=== PATIENT | female | born 1995 | race Two or more races ===

== ENCOUNTER → 2024-02-10 07:58 | Outpatient (REF) | payer BC, SELFPAY | LOC: MRI 07:58 | PROVIDERS: ATTENDING PHYSICIAN Nurse Practitioner Family; FAMILY PHYSICIAN Physician Assistant | DX: R51.9 Headache, unspecified (principal) | CPT/HCPCS: 70553; A9575 ==

== ENCOUNTER 2024-11-19 15:27 | Emergency (ER) | payer OTHER, SELFPAY ==
[2024-11-19 15:35] VITALS: BP 126/83
--- NOTE | 2024-11-19 19:52 | ED.SKININJ ---
HPI-Injury
General
Chief Complaint: Rabies
Source: patient
Time Seen by Provider: 11/19/24 19:32
History of Present Illness-Injury
Is this injury a work related problem?: Yes
Is pt an associate of [facility]/[place]?: No
Initial Injury comments:
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 Cat reportedly has some type of neurologic disorder, patient states that she has
not had her rabies vaccine updated in around 4 years and is requesting this presently. No other injuries were sustained. Patient's tetanus is up-to-date.
Past History
Past History
ED Past Medical History: Other
ED Past Surgical History: None
Social History
Tobacco: Non-smoker
Alcohol: None
Drug: None
Living: with family
Employment: Employed
Review of Systems
Review of Systems
All Other Systems: ROS reviewed and negative except as documented in HPI and ROS
Phy Exam
Physical Exam
Physical Exam:
GENERAL: Alert , in no apparent distress
EYE: conjunctiva clear
Head: Normocephalic atraumatic
NECK: Supple,
ENT: mmm.
LUNGS: no acute respiratory distress
NEUROLOGICAL: Alert and oriented
SKIN: Warm and dry, small bite puncture wound to the palmar surface of the left index finger distal phalanx, no active bleeding
MUSCULOSKELETAL: well perfused.
PSYCH: Normal and appropriate interaction.
Scores
Heart Failure Risk
Heart Failure Risk Score: Not Applicable
Heart Score for Chest Pain Patients
STEMI patient?: Not applicable
Withdrawal Assessment of Alcohol
Withdrawal Assessment Completed?: Not applicable
Course
Orders/Labs/Results
Orders:
Orders
11/19/24 19:52
Amoxicillin 875 mg/Clav 125 mg [Augmentin 875 mg/125 mg] 1 tablet PO NOW STA
11/19/24 20:00
Rabies Vaccine (Pcec)/Pf [Rabavert Rabies Vacc W-Diluent] 2.5 unit IM .ONCE ONE
Vital Signs
Initial and Last Documented VS:
Initial Vital Signs
Temp Pulse Resp BP Pulse Ox
98 F 98 16 126/83 99
11/19/24 15:35 11/19/24 15:35 11/19/24 15:35 11/19/24 15:35 11/19/24 15:35
Last Documented Vital Signs
Temp Pulse Resp BP Pulse Ox
98 F 81 16 121/81 99
11/19/24 15:35 11/19/24 20:00 11/19/24 20:00 11/19/24 20:00 11/19/24 20:00
MDM/Problems Addressed
Differential Diagnosis Includes:
Cat bite, no current symptoms to suggest tenosynovitis or cellulitis
MDM/Problems Addressed:
29-year-old female presenting to the ER for evaluation following a cat bite to the left index finger. Wound was irrigated with copious normal saline. Will start Augmentin for infection prevention. Will update first dose of rabies series here,
patient given a prescription for [facility] for the second rabies vaccine. Otherwise stable for discharge home
*Pulse Oximetry
Patient hypoxic: no
*Critical Care Note
Total Time (30-74mins, 75-104mins- exclusive of procedures): Not Applicable
ED Attending Note
-
Portions of this chart may have been created with voice recognition software.� Occasional wrong word or��sound alike� substitutions may have occurred due to the inherent limitations of voice recognition software.
Discharge Plan
Departure
Patient Disposition: Home (Routine Discharge)
Date of Disposition: 11/19/24
Time of Disposition: 19:52
Patient with high blood pressure during this ER visit?: No
Discharge Problem:
Cat bite, Puncture wound of left index finger
Instructions: Animal Bites (DC), Rabies Vaccine
Prescriptions:
New
amoxicillin-pot clavulanate 875-125 mg tablet
1 tab PO BID Qty: 9 0RF
Stand Alone Forms: Rabies Vaccine Post Exp Dosing
Activity Restrictions/Additional Instructions:
Please contact [facility] for 2nd rabies vaccine. You only need 2 boosters. You do not need 3rd and 4th.
Interventions
Interventions:
*Risk Screen - Suicide Last Done: 11/19/24 15:37
*General Assessment Last Done: 11/19/24 19:54
*Neglect/Abuse Screening Last Done: 11/19/24 15:37
*ED- Fall Risk Assessment Last Done: 11/19/24 19:54
*Nursing Disposition Last Done: 11/19/24 20:29
ED-Skin Assessment Last Done: 11/19/24 19:54
Discharge Date and Time
Discharge Date/Time: 11/19/24 20:31
Print Language: ARABIC
[2024-11-19 20:00] VITALS: BP 121/81
[2024-11-19] MEDS: RABAVERT RABIES VACC W-DILUENT 2.5 UNIT IM (20:14)
[2024-11-19] MEDS: AUGMENTIN 875 MG/125 MG 1 TABLET PO (20:14)
== END 2024-11-19 20:31 | disposition home or self-care (01) ==
LOC: EMR 15:27
PROVIDERS: EMERGENCY PHYSICIAN Emergency Medicine; FAMILY PHYSICIAN Physician Assistant
DX: S61.231A Puncture wound without foreign body of left index finger without damage to nail, initial encounter (principal); W55.01XA Bitten by cat, initial encounter; Z23 Encounter for immunization; Y99.0 Civilian activity done for income or pay
CPT/HCPCS: 99282; 90471; 90675

== ENCOUNTER 2024-11-22 12:57 | Outpatient (RCR) | payer OTHER, SELFPAY ==
[2024-11-22 13:20] VITALS: BP 120/80
[2024-11-22] MEDS: RABAVERT RABIES VACC W-DILUENT 2.5 UNIT IM (13:33)
== END 2024-11-26 11:09 | disposition home or self-care (01) ==
LOC: OID 12:57
PROVIDERS: ATTENDING PHYSICIAN Emergency Medicine
DX: Z20.3 Contact with and (suspected) exposure to rabies (principal); Z23 Encounter for immunization
CPT/HCPCS: 90471; 90675